=== PATIENT | female | born 1970 | race Two or more races ===

== ENCOUNTER 2021-06-16 11:10 | Outpatient (CLI) | payer OTHER | END 2021-06-16 12:27 | disposition home or self-care (01) | LOC: ASH CLINIC 11:10 | PROVIDERS: ATTEND General Practice | DX: U07.1 COVID-19 (principal); Z23 Encounter for immunization ==

== ENCOUNTER → 2021-06-16 | Emergency (ER) | payer OTHER ==
[~2021-06-16] VITALS: Ht 165.1 cm; Wt 65.3 kg
[~2021-06-16] MED LIST: LEVSIN0.125 MG PO; NORVASC2.5 M1; ORPHENADRINE C100 MG PO; SKELAGESIC PO; ZANTAC300 MG PO; ZOFRAN4 MG PO
== END | disposition home or self-care (01) ==
LOC: ER 10:05
DX: M94.0 Chondrocostal junction syndrome [Tietze] (principal); R07.89 Other chest pain